=== PATIENT | female | born 1965 | race Hispanic/Latino ===

== ENCOUNTER 2017-01-19 07:58 | Day surgery (SDC) | payer OTHER ==
[~2017-01-19] VITALS: Ht 144.8 cm; Wt 90.9 kg
[~2017-01-19 07:58] MED LIST: AMLO5TAB2 PO; CeFAZolin Inj 2 GM in IV Premix 1 EACH IV ONE
[2017-01-19] MEDS ORDERED: fentaNYL-PF 50 mCg/mL 2 mL Inj ONE (07:59)
[2017-01-19 08:34] VITALS: BP 150/74; PULSE 68; RESP 16; O2SAT 96
[2017-01-19] MEDS: Lactated Ringer's 1,000 ML IV SCH ×2 (08:47→10:02)
--- NOTE | 2017-01-19 09:19 | PCM.HPANE ---
Patient Data Surgeon Admitting Provider: Attending Provider:Chau Ag MD Primary Care Physician:Ryan Franco MD Other Provider:[facility] Reason for Visit Left Ear Keloid Ht/WT & BMI Height (Feet): 4 Height (Inches): 9.00 Weight (Kilograms): 90.900 Body Mass Index 43.00 Allergies Coded Allergies: No Known Allergies (Verified Allergy, Unknown, 01/18/17) Past Anesthesia History Anesthesia History: Denies:: Abnormal Airway, Anesthesia Reactions, Difficult Intubation, Fam Anesthesia Reaction, Fam Malignant Hypertherm, Malignant Hyperthermia Diabetes History Hx Diabetes?: No MRSA MRSA: No Medications Hypertension Medication: Yes (AMLODIPINE) Home Meds Incl Beta Oneyda: No Reported Medications Amlodipine 5 Mg Tablet5 Mg PO DAILY 30 Days Ref 0 12/03/14 Discontinued Scripts Benzonatate (Tessalon Perle)100 Mg [id number] Mg PO TID PRN For Cough #15 CAPSULE Prov:Gerardo MacP 09/30/15 Loperamide 2 Mg Tablet2 Mg PO DIRECTED For Diarrhea or Loose Stool #20 TABLET take 2 tablets by mouth followed by one tablet by mouth after each loose stool up to max of 8 tablets a day Prov:Gerardo MacP 09/30/15 Ondansetron ODT (Zofran ODT)4 Mg Tablet4 Mg PO Q4H PRN For Nausea #15 TABLET Prov:Gerardo Mac 09/30/15 History History of ENT Problems?: Yes HEENT History: Denies:: Abnormal Airway Cataracts Difficult Intubation Dysphagia Glaucoma Hearing Problem Sinus Problem TMJ Denture Type: None Teeth Condition: Within Normal Limits Other HEENT Pertinent History: LT EAR KELOID=CURRENT PROBLEM Hx of Heart Problems?: Yes Cardiovascular History: Positive for:: Hypertension Denies:: AICD Congestive Heart Failure Heart Murmur Pacemaker Valvular Heart Disease Other History/Comments Cardiac ROS negative, able to walk one flight of stairs, deconditioned Hx of Respiratory Problem?: Yes Respiratory History: Positive for:: Dyspnea (RUDD) Denies:: Asthma COPD Chest Surgery Cough Emphysema Hemoptysis Oxygen Administration Pneumonia Pulmonary Embolism Tuberculosis Use of C-PAP Machine Use of Inhalers / NEBS Other History/Comment ROS negative, SOB secondary to deconditioning Hx Neurologic Problems?: Yes Neurological History: Positive for:: Headaches Denies:: CVA Hx of GI Problems?: Yes Other GI Pertinent History: RLQ INCISIONAL HERNIA Other History/Comment well controlled GERD Hx of Problems?: No Female Hx: Denies:: Currently Skin History: Denies:: History Skin Disorders? Pressure Ulcers Hx Musculoskeletal Problems?: Yes Musculoskeletal History: Positive for:: Musculoskeletal Trauma (HX OF "LEG PAIN & JOINT SWELLING") Hx of Psycho/Social Problems?: No Hx Surgeries?: Yes (EASTON,ABD HYST) Hx Any Other Health Problems?: Yes Other History: Positive for:: Hospitalization Denies:: Cancer Endocrine Disease Thyroid Disease History Blood Transfusions: Denies:: Blood Transfusions Hx Diabetes: No Hx Alcohol Use: NoHx Substance Use: No Smoking Status: Never Smoker Have You Smoked inLast 12 mo: No Stop/Bang Treated for Sleep Apnea?: No Do You Have a CPAP Machine?: No S-Snoring: Do You Snore Loudly: No T-Tired: feel tired, fatigued: No O-Obsered: Observed not breath: No P-Blood Pressure: treated: Yes B- Body Mass Index > 35 kg/m2: Yes A- Age over 50: Yes N- Neck Large Circumference: No G- Gender Male: No CONOR Total Score: 3 Risk Assessment Category Category 1A: Patient has history of documented sleep apnea, and HAS NOT received any narcotic, sedative or anesthesia administration during this stay. Category 1B: Patient has history of documented sleep apnea, and HAS received any narcotic , sedative or anesthesia administration during this stay Category 2: Patient has SUSPECTED Obstructive Sleep Apnea, and HAS received any narcotic , sedative or anesthesia administration during this stay. Category 3: Patient has SUSPECTED Obstructive Sleep Apnea and HAS NOT received narcotic, sedative or anesthesia administration during this stay. Category 4: Outpatient in Procedural Areas with known sleep apnea or who screen positive for High Risk via the STOP/BANG questionnaire. Exam Exam Vital Signs Vital Signs Date Time Temp Pulse Resp B/P Pulse Ox O2 Delivery O2 Flow Rate FiO2 01/19/17 08:34 36.1 68 16 150/74 96 Room Air General Appearance: Alert, Oriented X3, Cooperative HEENT/AIRWAY: MP 2 Lungs: Clear to Auscultation, Normal Air Movement Heart: Exam Unremarkable, Regular Rate/Rhythm, No Murmurs/Rubs/Gallops Meds/Labs/Diagnostics Admission Meds Current Medications Lactated Ringer's (Lr) 1,000 ml @ 120 mls/hr [id number] IV Last administered on t 08:47; Start 01/19/17 at 05:00; Stop 01/19/17 at 13:19 Plan Impression Patient chart reviewed, patient interviewed and anesthestic plan with risks, benefits, and alternatives discussed, and informed consent obtained. ASA Physical Status: ASA2 Mod Systemic Disease Anesthetic Plan: GA, MAC Bene/Risks/Altern/Consents: Yes HP Complete Prior to Induction: Yes Barber Shearer MD Jan 19, 2017 09:19
[2017-01-19] MEDS ORDERED: Lidocaine 1%-Epi 1:100,000 20 mL Inj NERVEBLOCK ONE (09:59)
[2017-01-19] MEDS ORDERED: Bupivacaine-MPF 0.25% 30 mL Inj INFILTRATE ONE (10:01)
[2017-01-19] MEDS ORDERED: Gentamicin 40 mg/mL 2 mL Inj INJ ONE (10:04)
[2017-01-19] MEDS ORDERED: Lactated Ringer's 1,000 ML IV SCH (10:10)
[2017-01-19] MEDS ORDERED: Dexamethasone 4 mg/mL Inj IVPUSH PRN (10:10)
[2017-01-19] MEDS ORDERED: fentaNYL-PF 50 mCg/mL 2 mL Inj IVPUSH PRN (10:10)
[2017-01-19] MEDS ORDERED: Phenylephrine 10,000 mCg/mL Inj IVPUSH PRN (10:10)
[2017-01-19] MEDS ORDERED: Ondansetron 2 mg/mL 2 mL Inj IVPUSH PRN (10:10)
[2017-01-19] MEDS ORDERED: HYDROmorphone 1 mg/mL Inj IVPUSH PRN (10:10)
[2017-01-19] MEDS ORDERED: EPHEDrine Sulfate 50 mg/mL Inj IVPUSH PRN (10:10)
[2017-01-19] MEDS ORDERED: MetoCLOpramide 5 mg/mL 2 mL Inj IVPUSH PRN (10:10)
[2017-01-19] MEDS ORDERED: Lactated Ringer's 500 ML IV PRN (10:10)
[2017-01-19 10:24] VITALS: BP 129/73; PULSE 71; RESP 16; O2SAT 99
[2017-01-19 10:51] VITALS: BP 137/67; PULSE 68; RESP 16; O2SAT 98
--- NOTE | 2017-01-19 14:54 | PCM.ANEP1 ---
Post Anesthesia PACU Phase 1 Assessment Vital Signs Vital Signs Date Time Temp Pulse Resp B/P Pulse Ox O2 Delivery O2 Flow Rate FiO2 01/19/17 10:51 68 16 137/67 98 Room Air 01/19/17 10:24 36.2 71 16 129/73 99 Room Air 01/19/17 08:34 36.1 68 16 150/74 96 Room Air Anesthetic Administered: MAC Level of Alertness: Awake, talking GREENBERG's with Equal Strength: Yes Pain: No Nausea or Vomiting: No CV Function & Hydration Stable: Yes Airway Device: Lungs: Clear to Auscultation, Normal Air Movement Dermatome Level: Full Sensation PACU Phase 2 Assessment Complications: No Follow up Care: N/A Patient Instructions Provided: N/A Barber Shearer MD Jan 19, 2017 14:54
--- NOTE | 2017-01-20 14:22 | PATH ---
SURGICAL PATHOLOGY Attending Physician:Chau Ag CASE STATUS: Signed Out PATIENT NAME: ARNULFO MORALES PID: [id number] : 1965 DATE COLLECTED:01/19/2017 16:08 SPECIMEN: Skin, biopsy CLINICAL HISTORY: 1. LEFT EAR KELOID FINAL DIAGNOSIS: 1.SPECIMEN DESIGNATED LEFT EAR KELOID: KELOID. ICD10 L91.0 GROSS DESCRIPTION: The specimen is received in one formalin filled container labeled with the patient's name, sublabeled "left ear keloid" and consists of a light guan-jacobs right portion of tissue. The specimen is inked blue. The specimen is trisected and entirely submitted in one cassette. 01/19/2017 DAC MICRO DESCRIPTION: See diagnosis. ICD-9 CODES: CPT CODES: 1: 85192 Electronically Signed Out Arnav Browning MD [facility] Pathology [facility] [address], [place] [address] Technical component performed at [facility], [facility] [address], [place], [address]
--- NOTE | 2017-01-25 01:10 | OP ---
[address] [address] OPERATIVE REPORT PATIENT: ARNULFO MARX : 1965 MR#: [id number] ADMIT: 01/19/2017 JOB ID: [id number] DATE OF SURGERY: 01/19/2017 PREOPERATIVE DIAGNOSIS(ES): Left earlobe mass, likely keloid. POSTOPERATIVE DIAGNOSIS(ES): Left earlobe mass, likely keloid. PROCEDURE: 1. Excision of left ear keloid, 1.5 cm. 2. Layered closure of left ear defect, total length of layered closure 2 cm. SURGEON: Chau Ag MD [employer] KITCHEN: None. ANESTHESIA: General anesthesia. ESTIMATED BLOOD LOSS: Minimal. COMPLICATIONS: None apparent. SPECIMEN: Left ear mass to Pathology. INDICATIONS FOR PROCEDURE: This is a 51-year-old, female patient, with a slowly enlarging mass. The mass has progressively increased in size, especially in the last two years. At this point, the mass has also become quite tender. At this point, excision of the mass is indicated for tissue diagnosis and for symptom relief. PROCEDURE AND FINDINGS: The patient was identified in the preoperative area. Surgical site was marked. The patient was then taken back to the operating room and placed supine on the operating table. Appropriate time-outs were taken. General anesthesia was induced smoothly. The patient was then prepped and draped in the usual sterile manner. I first turned my attention to the left earlobe. Local anesthesia was infiltrated to the surgical site consisting of 0.25% Marcaine. It was noted that the patient has a 1.5 cm or so subcutaneous mass on the earlobe. On the anterior surface, there is a small transverse scar. On the posterior aspect, no obvious scar was noted. A small ellipse was then made along the transverse scar on the anterior aspect of the mass. This was deepened through the skin and down to the underlying mass which appears to be scar tissue or keloid. Once this has been done, I turned my attention to the posterior aspect of the mass. A longitudinal incision was then made directly over the center of this mass with a #15 blade, again deepened down to the underlying mass which appears to be scar tissue. I then dissected around the mass, elevating a normal subcutaneous tissue off of this mass with blunt and sharp dissection with a pair of tenotomy scissors. This was done completely around the mass until the dissection plane connected with the dissection plane from the anterior incision. This allowed the mass with a small ellipse of skin to be removed. This was passed off to Pathology as a specimen. Hemostasis was obtained with electrocautery. The anterior aspect of the incision was then reapproximated with pressure layer of 4-0 Monocryl deep dermal suture, followed by 5-0 Prolene simple interrupted sutures. The anterior repair measured approximately 0.5 cm. Posteriorly, there is some excess skin flap remaining. The excess skin flap was then trimmed. Once this has been done, a layer of 4-0 Monocryl deep dermal sutures were placed, followed by 5-0 Prolene simple running suture. The length of closure posteriorly is approximately 1.5 cm. The patient tolerated the procedure well. Needle count, sponge count, instrument counts were correct at the end of the procedure. The patient was extubated and transported to recovery in stable condition.
== END 2017-01-19 23:59 | disposition home or self-care (01) ==
LOC: SAS 07:58
PROVIDERS: ATTEND Plastic Surgery
DX: L91.0 Hypertrophic scar (principal); L90.5 Scar conditions and fibrosis of skin
CPT/HCPCS: 11442; 12051; J0690; J1580; J2250; J3010; J7120